=== PATIENT | male | born 1985 | race American Indian/Alaskan Native ===

== ENCOUNTER 2018-06-23 23:30 | Emergency (ER) | payer SELFPAY ==
[2018-06-23] MEDS ORDERED: HALDOL IM PRN (23:59)
[2018-06-23] MEDS ORDERED: ATIVAN IM PRN (23:59)
--- NOTE | 2018-06-24 00:02 | Emergency Department Report ---
ED General Adult HPI - General Chief complaint: Psych Stated complaint: AMS Time Seen by Provider: 06/23/18 23:50 Source: patient, family, EMS (ems notes not available at time of chart dictation), RN notes reviewed, old records reviewed Mode of arrival: Ambulatory Limitations: Altered Mental Status - History of Present Illness Initial comments: This is a 33-year-old gentleman. The patient is accompanied by his fiance, Ms. Veroinque Burciaga; [phone] History is primarily obtained from this Burciaga. The patient was apparently last seen normal at 3:00 PM. Sometime this evening, the patient may have ingested an unknown drug or substance. It is not known what the patient took, and it is not known what time the ingestion took place. The patient complains of hallucinations but denies pain. The patient denies homicidality and suicidality. The patient is very anxious and emotionally labile, and is a poor historian. As for his fiance, there is no history of trauma that she is aware of. She reports patient was in his usual state of health earlier once today, up until going out with some friends. -: This afternoon Radiation: other Quality: other Consistency: other Improves with: other Worsens with: other Associated Symptoms: confusion, loss of appetite, malaise, weakness. denies: chest pain, cough, diaphoresis, fever/chills, headaches, nausea/vomiting, rash, seizure, shortness of breath, syncope - Related Data Previous Rx's Medication Instructions Recorded Last Taken Type RX: Naproxen [Naprosyn TAB] 500 mg PO BID PRN #20 tablet 03/19/16 Unknown Rx RX: traMADol [Ultram 50 MG tab] 50 mg PO Q6HR PRN #20 tablet 03/19/16 Unknown Rx Allergies Allergy/AdvReac Type Severity Reaction Status Date / Time No Known Allergies Allergy Unverified 03/18/16 18:00 ED Review of Systems ROS: Stated complaint: AMS Other details as noted in HPI Comment: Unobtainable due to pts medical conditions Constitutional: malaise Eyes: denies: eye discharge Respiratory: denies: cough Cardiovascular: denies: chest pain Genitourinary: denies: dysuria Musculoskeletal: denies: back pain, arthralgia, myalgia Skin: denies: lesions Neurological: weakness, confusion Psychiatric: anxiety, auditory hallucinations. denies: homicidal thoughts, suicidal thoughts ED Past Medical Hx - Past Medical History Previous Medical History?: Yes Hx Hypertension: Yes (untreated) Hx Psychiatric Treatment: Yes (anxiety) Additional medical history: hyperthyroidism - Surgical History Past Surgical History?: No - Social History Smoking Status: Current Every Day Smoker Substance Use Type: Alcohol - Medications Home Medications: Home Medications Medication Instructions Recorded Confirmed Last Taken Type RX: Naproxen [Naprosyn TAB] 500 mg PO BID PRN #20 tablet 03/19/16 Unknown Rx RX: traMADol [Ultram 50 MG tab] 50 mg PO Q6HR PRN #20 tablet 03/19/16 Unknown Rx ED Physical Exam - General Limitations: Altered Mental Status General appearance: appears intoxicated, anxious, in distress - Head Head exam: Present: atraumatic, normocephalic - Eye Eye exam: Present: normal appearance, EOMI, other (visual acuity intact to finger counting and color perception.) - ENT ENT exam: Present: normal exam, normal orophraynx, normal external ear exam - Neck Neck exam: Present: normal inspection, full ROM. Absent: tenderness, meningismus - Respiratory Respiratory exam: Present: normal lung sounds bilaterally. Absent: respiratory distress, wheezes, rales, rhonchi, stridor, chest wall tenderness - Cardiovascular Cardiovascular Exam: Present: regular rate, normal rhythm, normal heart sounds. Absent: bradycardia, tachycardia, irregular rhythm, systolic murmur, diastolic murmur, rubs, gallop - GI/Abdominal GI/Abdominal exam: Present: soft. Absent: distended, tenderness, guarding, rebound, rigid, pulsatile mass - Extremities Exam Extremities exam: Present: normal inspection, full ROM, other (2+ pulses noted in the bilateral upper, lower extremities. Compartments soft. No long bony tenderness. The pelvis is stable.). Absent: pedal edema, calf tenderness - Back Exam Back exam: Present: normal inspection, full ROM. Absent: tenderness, CVA tenderness (R), CVA tenderness (L), muscle spasm, paraspinal tenderness, vertebral tenderness - Neurological Exam Neurological exam: Present: altered, other (there is no facial droop. The tongue is midline. Extraocular movements are intact bilaterally. The tongue is midline, 5 out of 5 strength in 4 extremities. Unable to perform detailed neurologic examination secondary to intoxication.) - Psychiatric Psychiatric exam: Present: anxious. Absent: homicidal ideation, suicidal ideation - Skin Skin exam: Present: warm, dry, intact, normal color. Absent: rash ED Course Vital Signs 06/23/18 06/23/18 06/24/18 23:46 23:50 00:00 Temperature 98.8 F 98.8 F Pulse Rate 104 H 104 H Respiratory 18 18 Rate Blood Pressure 168/99 168/99 145/87 Blood Pressure 168/99 [Right] O2 Sat by Pulse 97 97 97 Oximetry 06/24/18 06/24/18 06/24/18 01:00 02:01 03:00 Temperature Pulse Rate 112 H 96 H 96 H Respiratory 10 L 17 13 Rate Blood Pressure 138/68 126/66 129/73 Blood Pressure [Right] O2 Sat by Pulse 95 100 96 Oximetry 06/24/18 06/24/18 04:01 05:00 Temperature Pulse Rate 73 72 Respiratory 12 12 Rate Blood Pressure 106/54 96/55 Blood Pressure [Right] O2 Sat by Pulse 96 96 Oximetry - Reevaluation(s) Reevaluation #1: 06/24/18 00:50 Differential diagnosis, including not limited to: Overdose, intoxication, thyroid derangement, intracranial hemorrhage Assessment and plan: 33-year-old gentleman with bizarre behavior, emotional volatility, but calm and cooperative, and not homicidal or suicidal. His fiance independently articulates that she is not worried about self-harm. The patient is placed on a 2013 for presumed intoxication. Screening laboratory studies, EKG, noncontrast CT scan of the brain pending. Psychiatric consultation obtained. We will observe patient in the emergency room pending clinical sobriety. We will reassess once his laboratory studies and CT scan have resulted. Reevaluation #2: 06/24/18 01:[address] scan of the brain is negative for acute disease. Screening laboratory studies thus far unremarkable. Awaiting clinical sobriety. Reevaluation #3: 06/24/18 patient is clinically sober. he walks with a steady gait. he is alert and oriented x 3 he denies complaints fiance feels safe to take him home counseled to not consume illicit substances will discharge 06/24/18 05:57 Reevaluation #4: 06/24/18 06:00 2013 discontinued ED Medical Decision Making - Lab Data Result diagrams: 06/24/18 00:19 06/24/18 00:19 Vital Signs 06/23/18 06/23/18 06/24/18 23:46 23:50 00:00 Temperature 98.2 F 98.8 F Pulse Rate 85 104 H Respiratory 14 18 Rate Blood Pressure 148/85 168/99 145/87 Blood Pressure 168/99 [Right] O2 Sat by Pulse 99 97 97 Oximetry Lab Results 06/24/18 06/24/18 Range/Units 00:19 00:38 WBC 11.7 H (4.5-11.0) K/mm3 RBC 4.98 (3.65-5.03) M/mm3 Hgb 14.6 (11.8-15.2) gm/dl Hct 42.8 (35.5-45.6) % MCV 86 (84-94) fl MCH 29 (28-32) pg MCHC 34 (32-34) % RDW 14.3 (13.2-15.2) % Plt Count 243 (140-440) K/mm3 Drugs of Abuse Note Disclamer - EKG Data -: EKG Interpreted by Vt EKG shows normal: sinus rhythm, axis, intervals, QRS complexes, ST-T waves Rate: normal - EKG Data When compared to previous EKG there are: previous EKG unavailable - Radiology Data Radiology results: pending Critical care attestation.: If time is entered above; I have spent that time in minutes in the direct care of this critically ill patient, excluding procedure time. ED Disposition Clinical Impression: History of drug abuse Disposition: DC-01 TO HOME OR SELFCARE Is pt being admited?: No Does the pt Need Aspirin: No Condition: Good Additional Instructions: Discontinued consumption of cannabis, illicit drugs. Long-term consumption of these substances may result in disability, paralysis, loss of quality of life. Follow-up with a primary care doctor or mental health professional within the next 7-10 days, and do not drive or operate motor vehicles until cleared by a primary care doctor to do so. Return to the emergency room right away with new, worsening or different symptoms. Referrals: KEVIN BACK MD [Primary Care Provider] - 3[facility] Days [facility] Days
[2018-06-24 00:39] LABS: Hematocrit 42.8 % (35.5-45.6); Hemoglobin 14.6 gm/dl (11.8-15.2); Mean Corpuscular HGB Conc 34 % (32-34); Mean Corpuscular Volume 86 fl (84-94); Platelet Count 243 K/mm3 (140-440); Red Blood Count 4.98 M/mm3 (3.65-5.03); Red Cell Distribution Width 14.3 % (13.2-15.2)
[2018-06-24 00:55] LABS: Alanine Aminotransferase 46 units/L (7-56); Albumin 4.6 g/dL (3.9-5); BUN/Creatinine Ratio 8; Blood Urea Nitrogen 10 mg/dL (9-20); Calcium 9.6 mg/dL (8.4-10.2); Hemolysis Index 33
[2018-06-24 01:14] LABS: Amphetamine Screen,Urine PRESUMPTIVE NEGATIVE; Benzodiazepines Screen,Urine PRESUMPTIVE NEGATIVE; Cocaine Screen,Urine PRESUMPTIVE NEGATIVE; Methadone Screen,Urine PRESUMPTIVE NEGATIVE; Opiate Screen,Urine PRESUMPTIVE NEGATIVE
[2018-06-24 01:26] LABS: Bilirubin,Urine NEG (Negative); Blood,Urine SM (Negative); Cannabinoid Screen,Urine PRESUMPTIVE POSITIVE; Color,Urine Straw (Yellow); RBC,Urine < 1.0 /HPF (0.0-6.0); Urobilinogen,Urine < 2.0 mg/dL (<2.0)
--- NOTE | 2018-06-24 01:36 | Cat Scan Report ---
FINAL REPORT EXAM: CT HEAD/BRAIN WO CON HISTORY: ams COMPARISON: None available. TECHNIQUE: Axial images obtained skull base through vertex. FINDINGS: No acute intracranial hemorrhage, midline shift or pathologic extra axial fluid collection. Ventricle s and cisterns are normal in size and configuration for the patient's age. Morin-white differentiation preserved. Calvarium grossly intact. Visualized ocular globes are grossly unremarkable. Mild to mode rate mucosal thickening of the ethmoid air cells. Mastoid air cells are clear. IMPRESSION: No grossly acute intracranial abnormality.
[2018-06-24 06:06] VITALS: BP 96/55
== END 2018-06-24 06:14 | disposition home or self-care (01) ==
LOC: EEVIPCON 23:30 → ED 23:30
DX: F19.129 Other psychoactive substance abuse with intoxication, unspecified (principal); R44.3 Hallucinations, unspecified; F41.9 Anxiety disorder, unspecified
CPT/HCPCS: 36415; 70450; 80053; 80307; 81001; 82140; 82550; 84439; 84443; 85027; 93005; 93010; 99284; G0480; 80320

== ENCOUNTER 2018-10-24 17:43 | Emergency (ER) | payer SELFPAY ==
--- NOTE | 2018-10-24 17:50 | Emergency Department Report ---
Blank Doc - Documentation Documentation: 33 y o male presents with right middle finger pain x 4 days no trauma or injury ACC eval
[2018-10-24] MEDS ORDERED: XYLOCAINE 1% MPF 5 mL INFILTRATI ONE (19:23)
[2018-10-24] MEDS ORDERED: IBUPROFEN PO ONE (19:24)
[2018-10-24] MEDS ORDERED: BACTRIM DS PO ONE (19:24)
--- NOTE | 2018-10-24 20:07 | Emergency Department Report ---
ED General Adult HPI - General Chief complaint: Extremity Injury, Upper Stated complaint: FINGER INFECTED Time Seen by Provider: 10/24/18 17:48 Source: patient Mode of arrival: Ambulatory Limitations: No Limitations - History of Present Illness Initial comments: Patient is a 33-year-old -Mal[place]ian male with no past medical history who presents to the ED with complaint of acute onset of persistent severe painful swelling right middle fingertip for the last 1 week, worse in the last 3 days. Patient denies fever, chills, nausea, vomiting, numbness and tingling on the right middle finger right hand, traumatic injury, dizziness, or weakness of the right hand. Patient admits to biting his nails have been habitually. MD Complaint: RIGHT MIDDLE FINGER TIP INFECTION -: Sudden, week(s) (1) Location: upper extremity (right middle finger) Radiation: non-radiation Severity scale (0 -10): 8 Quality: aching, sharp, constant Consistency: constant Improves with: none Worsens with: none Associated Symptoms: denies other symptoms, rash. denies: confusion, chest pain, cough, diaphoresis, fever/chills, headaches, loss of appetite, malaise, nausea/vomiting, seizure, shortness of breath, syncope, weakness Treatments Prior to Arrival: none - Related Data Previous Rx's Medication Instructions Recorded Last Taken Type Naproxen [Naprosyn TAB] 500 mg PO BID PRN #20 tablet 03/19/16 Unknown Rx traMADol [Ultram 50 MG tab] 50 mg PO Q6HR PRN #20 tablet 03/19/16 Unknown Rx Acetaminophen/Codeine [Tylenol 1 tab PO Q6H PRN #12 tab 10/24/18 Unknown Rx /Codeine # 3 tab] Ibuprofen [Motrin] 800 mg PO Q8HR PRN #20 tablet 10/24/18 Unknown Rx Sulfamethoxazole/Trimethoprim 1 each PO Q12H #20 tablet 10/24/18 Unknown Rx [Bactrim DS TAB] Allergies Allergy/AdvReac Type Severity Reaction Status Date / Time No Known Allergies Allergy Verified 10/24/18 17:43 ED Review of Systems ROS: Stated complaint: FINGER INFECTED Other details as noted in HPI Comment: All other systems reviewed and negative Constitutional: no symptoms reported. denies: chills, fever, malaise ENT: as per HPI. denies: ear pain, throat pain, dental pain, hearing loss Respiratory: no symptoms reported, see HPI. denies: cough, orthopnea, shortness of breath, SOB with exertion, SOB at rest Cardiovascular: as per HPI. denies: chest pain, dyspnea on exertion, orthopnea, syncope, paroxysmal nocturnal dyspnea Endocrine: no symptoms reported, see HPI. denies: excessive sweating, increased hunger, increased thirst, increased urine, unexplained weight gain, unexplained weight loss Gastrointestinal: as per HPI. denies: abdominal pain, nausea, vomiting, diarrhea, constipation Genitourinary: as per HPI. denies: urgency, dysuria, frequency, hematuria, discharge Musculoskeletal: as per HPI, joint swelling (right middle finger pain, swelling ). denies: back pain, arthralgia, myalgia Skin: as per HPI, rash (erythematous maculopapular fluctuant rash on distal right middle finger), change in color (erythematous). denies: change in hair/nails, pruritus Neurological: as per HPI. denies: headache, weakness, numbness, paresthesias Psychiatric: as per HPI Hematological/Lymphatic: as per HPI ED Past Medical Hx - Past Medical History Hx Hypertension: Yes (untreated) Hx Psychiatric Treatment: Yes (anxiety) Additional medical history: hyperthyroidism - Social History Smoking Status: Current Every Day Smoker Substance Use Type: Alcohol - Medications Home Medications: Home Medications Medication Instructions Recorded Confirmed Last Taken Type Naproxen [Naprosyn TAB] 500 mg PO BID PRN #20 tablet 03/19/16 Unknown Rx traMADol [Ultram 50 MG tab] 50 mg PO Q6HR PRN #20 tablet 03/19/16 Unknown Rx Acetaminophen/Codeine [Tylenol 1 tab PO Q6H PRN #12 tab 10/24/18 Unknown Rx /Codeine # 3 tab] Ibuprofen [Motrin] 800 mg PO Q8HR PRN #20 tablet 10/24/18 Unknown Rx Sulfamethoxazole/Trimethoprim 1 each PO Q12H #20 tablet 10/24/18 Unknown Rx [Bactrim DS TAB] ED Physical Exam - General Limitations: No Limitations General appearance: alert, in no apparent distress - Head Head exam: Present: atraumatic, normocephalic, normal inspection - Eye Eye exam: Present: normal appearance, PERRL, EOMI. Absent: scleral icterus, conjunctival injection Pupils: Present: normal accommodation - ENT ENT exam: Present: normal exam, normal orophraynx, mucous membranes moist, TM's normal bilaterally, normal external ear exam - Neck Neck exam: Present: normal inspection, full ROM. Absent: tenderness - Respiratory Respiratory exam: Present: normal lung sounds bilaterally. Absent: respiratory distress, wheezes, rales, rhonchi, chest wall tenderness, prolonged expiratory - Cardiovascular Cardiovascular Exam: Present: regular rate, normal rhythm, normal heart sounds. Absent: tachycardia, systolic murmur, diastolic murmur - GI/Abdominal GI/Abdominal exam: Present: soft, normal bowel sounds. Absent: distended, tenderness, guarding, rebound, hyperactive bowel sounds, hypoactive bowel sounds - Extremities Exam Extremities exam: Present: normal inspection, full ROM, tenderness (right middle finger tip), normal capillary refill, joint swelling (distal right middle finger tip) - Expanded Upper Extremity Exam Right Hand Wrist exam: Present: normal inspection, tenderness, swelling, erythema, other (Erythematous swollen tender maculopapular rash on distal right middle finger at the nail bed with fluctuance) Hand L/R Back: 1 - Swollen severely tender fluctuant maculopapular rash on distal right middle finger at the nail bed - Back Exam Back exam: Present: normal inspection, full ROM. Absent: muscle spasm, paraspinal tenderness - Neurological Exam Neurological exam: Present: alert, oriented X3, CN II-XII intact, normal gait, reflexes normal - Psychiatric Psychiatric exam: Present: normal affect - Skin Skin exam: Present: warm, dry, intact, rash (erythematous maculoappular fluctuant rash on distal right middle finger), erythema ED Course Vital Signs 10/24/18 10/24/18 17:48 19:40 Temperature 98.3 F Pulse Rate 68 Respiratory 20 16 Rate Blood Pressure 151/88 O2 Sat by Pulse 98 Oximetry - Reevaluation(s) Reevaluation #1: 10/24/18 20:10 On reevaluation, patient's pain is controlled, and the patient alerted the incision and drainage procedure well. - I & D Right Upper Distal Dorsal Finger Type of Procedure: Simple Site: distal dorsal right middle finger at the nail bed Blade Size: 11 I & D Procedure: betadine prep, sterile drapes applied, sterile dressing applied, gauze wick placed Progress: Patient tolerated the procedure well. The wound was cleaned thoroughly and packed with gauze. The wound was then dressed appropriately and patient discharged home on pain medications and antibiotics. ED Medical Decision Making - Medical Decision Making Patient is alert and oriented 3 and his abdomen distress but pain. Patient was treated with an anesthetic given an initial antibiotics in the ED. Patient diverted the incision and drainage procedure well and was discharged home on medications including antibiotics and pain medications. Patient advised to return to the ED in 2 days or to his primary care physician for wound recheck and packing removal. Patient was otherwise advised to return to the ED immediately if symptoms get worse. - Differential Diagnosis Paronychia of right middle finger, cellulitis of right middle finger Critical care attestation.: If time is entered above; I have spent that time in minutes in the direct care of this critically ill patient, excluding procedure time. ED Disposition Clinical Impression: Paronychia of right middle finger, Cellulitis of right middle finger Disposition: TO HOME OR SELFCARE Is pt being admited?: No Does the pt Need Aspirin: No Condition: Stable Instructions: Cellulitis (ED), Paronychia (ED) Additional Instructions: Take Medications with food, drink plenty of fluids and follow up with your primary care physician or back to the ED in 2 days for wound recheck. Otherwise return to the ED immediately if symptoms get worse. Absolutely No alcohol consumption advised Prescriptions: Sulfamethoxazole/Trimethoprim [Bactrim DS TAB] 1 each PO Q12H #20 tablet Ibuprofen [Motrin] 800 mg PO Q8HR PRN #20 tablet PRN Reason: Pain , Severe (7-10) Acetaminophen/Codeine [Tylenol /Codeine # 3 tab] 1 tab PO Q6H PRN #12 tab PRN Reason: Pain , Severe (7-10) Referrals: BRANDEN BRANNON MD [Primary Care Provider] - 3-5 Days Time of Disposition: 20:17 Print Language: SWISS
[2018-10-24 20:29] VITALS: BP 138/87
== END 2018-10-24 20:29 | disposition home or self-care (01) ==
LOC: ED 17:43
DX: L03.011 Cellulitis of right finger (principal); I10 Essential (primary) hypertension; F41.9 Anxiety disorder, unspecified; E05.90 Thyrotoxicosis, unspecified without thyrotoxic crisis or storm; F17.200 Nicotine dependence, unspecified, uncomplicated

== ENCOUNTER 2018-10-26 16:51 | Emergency (ER) | payer SELFPAY ==
--- NOTE | 2018-10-26 17:03 | Emergency Department Report ---
Chief Complaint: Extremity Injury, Upper Stated Complaint: FOLLOW UP TO FINGER INFECTION Time Seen by Provider: 10/26/18 17:01 - HPI History of Present Illness: This is a 33 y.o. M. that presents to the ER for wound reevaluation. Patient seen in this ER and paryonchia drained 2 days ago. - Exam Vital Signs: Vital Signs 10/26/18 17:01 Temperature 98.9 F Pulse Rate 77 Respiratory 18 Rate Blood Pressure 148/98 O2 Sat by Pulse 98 Oximetry MSE screening note: Focused history and physical exam performed. Due to findings the following was ordered: This initial assessment/diagnostic orders/clinical plan/treatment(s) is/are subject to change based on patient's health status, clinical progression and re- assessment by fellow clinical providers in the ED. Further treatment and workup at subsequent clinical providers discretion. Patient/guardians urged not to elope from the ED as their condition may be serious if not clinically assessed and managed. Initial orders include: ACC for further evaluation. ED Disposition for MSE Condition: Stable
[2018-10-26 20:31] VITALS: BP 138/81
[2018-10-26] MEDS ORDERED: LIDOCAINE VISCOUS 2% ONE (21:52)
[2018-10-26] MEDS ORDERED: LIDOCAINE VISCOUS 2% PO ONE (21:53)
--- NOTE | 2018-10-26 21:53 | Emergency Department Report ---
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 He presents to the emergency room for wound care and wound checkup. He had a paronychia that was treated at this hospital 2 days ago, by local block, incision and drainage, and packing. He endorses compliance with his antibiotics. Swelling is still present. Minimal pain noted on the pad. No fevers or chills. No pain with passive range of motion of the right middle finger. No other injuries, no other complaints. -: days(s) (2) Extremity Location: Right: Hand (right middle finger) Context: other (comes in for wound check) Associated Symptoms: pain - Related Data Previous Rx's Medication Instructions Recorded Last Taken Type Naproxen [Naprosyn TAB] 500 mg PO BID PRN #20 tablet 03/19/16 Unknown Rx traMADol [Ultram 50 MG tab] 50 mg PO Q6HR PRN #20 tablet 03/19/16 Unknown Rx Acetaminophen/Codeine [Tylenol 1 tab PO Q6H PRN #12 tab 10/24/18 Unknown Rx /Codeine # 3 tab] Ibuprofen [Motrin] 800 mg PO Q8HR PRN #20 tablet 10/24/18 Unknown Rx Sulfamethoxazole/Trimethoprim 1 each PO Q12H #20 tablet 10/24/18 Unknown Rx [Bactrim DS TAB] Allergies Allergy/AdvReac Type Severity Reaction Status Date / Time No Known Allergies Allergy Verified 10/26/18 21:56 ED Review of Systems ROS: Stated complaint: FOLLOW UP TO FINGER INFECTION Other details as noted in HPI Constitutional: denies: fever Eyes: denies: eye discharge ENT: denies: epistaxis Respiratory: denies: cough Cardiovascular: denies: chest pain Gastrointestinal: denies: abdominal pain Musculoskeletal: myalgia Neurological: denies: headache, weakness, numbness, paresthesias, confusion ED Past Medical Hx - Past Medical History Hx Hypertension: Yes (untreated) Hx Psychiatric Treatment: Yes (anxiety) Additional medical history: hyperthyroidism - Social History Smoking Status: Current Every Day Smoker Substance Use Type: Alcohol - Medications Home Medications: Home Medications Medication Instructions Recorded Confirmed Last Taken Type Naproxen [Naprosyn TAB] 500 mg PO BID PRN #20 tablet 03/19/16 Unknown Rx traMADol [Ultram 50 MG tab] 50 mg PO Q6HR PRN #20 tablet 03/19/16 Unknown Rx Acetaminophen/Codeine [Tylenol 1 tab PO Q6H PRN #12 tab 10/24/18 Unknown Rx /Codeine # 3 tab] Ibuprofen [Motrin] 800 mg PO Q8HR PRN #20 tablet 10/24/18 Unknown Rx Sulfamethoxazole/Trimethoprim 1 each PO Q12H #20 tablet 10/24/18 Unknown Rx [Bactrim DS TAB] ED Physical Exam - General Limitations: No Limitations General appearance: alert, in no apparent distress - Head Head exam: Present: atraumatic, normocephalic - Eye Eye exam: Present: normal appearance, EOMI. Absent: conjunctival injection, nystagmus - ENT ENT exam: Present: normal exam, normal orophraynx, mucous membranes moist, normal external ear exam - Neck Neck exam: Present: normal inspection, full ROM. Absent: tenderness, meningismus - Respiratory Respiratory exam: Present: normal lung sounds bilaterally. Absent: respiratory distress - Cardiovascular Cardiovascular Exam: Present: regular rate, normal rhythm, normal heart sounds. Absent: bradycardia, tachycardia, irregular rhythm, systolic murmur, diastolic murmur, rubs, gallop - GI/Abdominal GI/Abdominal exam: Present: soft. Absent: distended, tenderness, guarding, rebound, rigid, pulsatile mass - Rectal Rectal exam: Present: deferred - Extremities Exam Extremities exam: Present: normal inspection, full ROM, other (2+ pulses noted in the bilateral upper extremities. Full range of motion of bilateral upper and lower extremities. The middle finger has packing on the dorsal distal aspect. There is hyperpigmentation, but no pus or streaking. Question minimal erythema noted. The pad of the middle finger is minimally tender. There is no fluctuance. Compartments are soft. Finger intrinsics are intact range of motion.) - Back Exam Back exam: Present: normal inspection, full ROM. Absent: tenderness, CVA tenderness (R), CVA tenderness (L), vertebral tenderness - Neurological Exam Neurological exam: Present: alert, other (Extraocular movements intact. Tongue midline. No facial droop. Facial sensation intact to light touch in the V1, V2, V3 distribution bilaterally. 5 and 5 strength in 4 extremities.. Sensation is intact to light touch in 4 extremities.). Absent: motor sensory deficit - Psychiatric Psychiatric exam: Present: normal affect, normal mood - Skin Skin exam: Present: warm, dry, intact, normal color. Absent: rash ED Course Vital Signs 10/26/18 10/26/18 17:01 20:30 Temperature 98.9 F Pulse Rate 77 70 Respiratory 18 16 Rate Blood Pressure 148/98 Blood Pressure 138/81 [Left] O2 Sat by Pulse 98 99 Oximetry ED Medical Decision Making - Lab Data Vital Signs - 24 hr 10/26/18 10/26/18 17:01 20:30 Temperature 98.9 F Pulse Rate 77 70 Respiratory 18 16 Rate Blood Pressure 148/98 Blood Pressure 138/81 [Left] O2 Sat by Pulse 98 99 Oximetry - Medical Decision Making Differential diagnosis, including but not limited to: Paronychia follow-up, wound care check up Assessment and plan: 33-year-old gentleman who presents to the emergency room for wound care check up after incision and drainage of paronychia. He does not appear to have worsening cellulitis, packing was removed, and finger pad is not fluctuant, and does not demonstrate exquisite tenderness. Do not suspect felon at this time. Dressing was reapplied, although packing does not need to be reapplied, we discussed wound care instructions with the patient, he will continue antibiotics, he may initiate washing with gentle soap and water, initiate salt water soaks, and follow up as an outpatient. Critical care attestation.: If time is entered above; I have spent that time in minutes in the direct care of this critically ill patient, excluding procedure time. ED Disposition Clinical Impression: Visit for wound check Disposition: DC-01 TO HOME OR SELFCARE Is pt being admited?: No Does the pt Need Aspirin: No Condition: Stable Additional Instructions: Continue current outpatient medications. Wash the hand with gentle soap and water once every 24 hours. Apply bacitracin, purchased [id number], once every 24 hours to the wound. Patient may soak the finger in hot water, with salt, as often as as needed for symptom relief. Please make certain to keep the finger covered if at work. Patient should follow-up for check up within the next 5-7 days. The patient may follow up in this emergency room, with the primary care doctor, orthopedic surgeon, or urgent care center. The patient should return to this emergency room right away with significant redness, swelling, streaking, pus, inability to bend the right finger, or any new, worsening or different symptoms not present on the initial emergency room evaluation. Referrals: BLAKE RODRÍGUEZ MD [Staff Physician] - 3-[address] [facility] [Provider Group] - 3-5 Days
[2018-10-26] MEDS ORDERED: POLYSPORIN TP ONE (22:02)
[2018-10-26] MEDS ORDERED: TRIPLE ANTIBIOTIC TP ONE ×2 (22:09→22:15)
== END 2018-10-26 22:41 | disposition home or self-care (01) ==
LOC: ED 16:51
DX: L03.011 Cellulitis of right finger (principal); I10 Essential (primary) hypertension; E03.9 Hypothyroidism, unspecified; F17.200 Nicotine dependence, unspecified, uncomplicated
CPT/HCPCS: A6250

== ENCOUNTER 2019-01-21 20:07 | Emergency (ER) | payer SELFPAY ==
[2019-01-21 20:28] VITALS: BP 155/98
--- NOTE | 2019-01-21 20:57 | XRay Report ---
CHEST 2 VIEWS INDICATION / CLINICAL INFORMATION: chest pain. COMPARISON: None available. FINDINGS: SUPPORT DEVICES: None. HEART / MEDIASTINUM: No significant abnormality. LUNGS / PLEURA: No significant pulmonary or pleural abnormality. No pneumothorax. ADDITIONAL FINDINGS: No significant additional findings. IMPRESSION: 1. No acute findings. Signer Name: Joss Biswas MD Signed: 01/21/2019 8:52 PM Workstation Name: [id number]
[2019-01-21 21:03] LABS: Basophils % (Auto) 0.5 % (0.0-1.8); Eosinophils # (Auto) 0.3 K/mm3 (0.0-0.4); Eosinophils % (Auto) 5.1 % (0.0-4.3); Hematocrit 41.6 % (35.5-45.6); Hemoglobin 14.5 gm/dl (11.8-15.2); Lymphocytes # (Auto) 2.3 K/mm3 (1.2-5.4); Lymphocytes % (Auto) 35.9 % (13.4-35.0); Mean Corpuscular HGB Conc 35 % (32-34); Mean Corpuscular Volume 88 fl (84-94); Monocytes # (Auto) 0.5 K/mm3 (0.0-0.8); Monocytes % (Auto) 7.4 % (0.0-7.3); Platelet Count 217 K/mm3 (140-440); Red Blood Count 4.72 M/mm3 (3.65-5.03); Red Cell Distribution Width 14.4 % (13.2-15.2)
[2019-01-21 21:22] LABS: BUN/Creatinine Ratio 15; Blood Urea Nitrogen 16 mg/dL (9-20); Calcium 9.4 mg/dL (8.4-10.2); Hemolysis Index 4
== END 2019-01-22 01:15 | disposition home or self-care (01) ==
LOC: ED 20:07
DX: R42 Dizziness and giddiness (principal); Z53.21 Procedure and treatment not carried out due to patient leaving prior to being seen by health care provider
CPT/HCPCS: 36415; 71046; 80048; 84484; 85025; 93005; 93010

== ENCOUNTER 2019-04-15 00:19 | Emergency (ER) | payer SELFPAY ==
[2019-04-15 00:24] VITALS: BP 149/93
[2019-04-15] MEDS ORDERED: IBUPROFEN 800 MG TAB PO ONE (01:18)
--- NOTE | 2019-04-15 01:43 | XRay Report ---
CHEST 2 VIEWS INDICATION: cough x 1 month. COMPARISON: 01/21/2019. FINDINGS: Support devices: None. Heart: Within normal limits. Lungs/Pleura: No acute air space or interstitial disease. No significant pleural effusion. IMPRESSION: No acute findings. Signer Name: Jesse Benavides MD Signed: 04/15/2019 1:39 AM Workstation Name: [id number]
--- NOTE | 2019-04-15 01:59 | Emergency Department Report ---
ED General Adult HPI - General Chief complaint: Back Pain/Injury Stated complaint: DRY COUGH,LOSS OF APPETITE, BACK AND NECK PAIN Time Seen by Provider: 04/15/19 01:15 Source: patient Mode of arrival: Ambulatory Limitations: No Limitations - History of Present Illness Initial comments: Mr Mancia is s 34 y/o who presents for persistent cough for 1 months , with upper ago as back pain. This is chronic condition , pt denies sob, no wheezing, no stridor , no n/v no cp no dizziness or light headedness. There is no fever or chills, symptoms are exacerbated by movement, symptoms relieved by rest. Onset/Timin -: month(s), unknown (recurring for 1 yr) Location: back Radiation: back Severity scale (0 -10): 3 Quality: aching Consistency: intermittent Improves with: rest Worsens with: movement (cough ) Associated Symptoms: cough, loss of appetite. denies: diaphoresis, fever/chills, nausea/vomiting, shortness of breath, syncope, weakness Treatments Prior to Arrival: none - Related Data Previous Rx's Medication Instructions Recorded Last Taken Type Naproxen [Naprosyn TAB] 500 mg PO BID PRN #20 tablet 03/19/16 Unknown Rx traMADoL [Ultram 50 MG tab] 50 mg PO Q6HR PRN #20 tablet 03/19/16 Unknown Rx Acetaminophen/Codeine [Tylenol 1 tab PO Q6H PRN #12 tab 10/24/18 Unknown Rx /Codeine # 3 tab] Ibuprofen [Motrin] 800 mg PO Q8HR PRN #20 tablet 10/24/18 Unknown Rx Sulfamethoxazole/Trimethoprim 1 each PO Q12H #20 tablet 10/24/18 Unknown Rx [Bactrim DS TAB] Ketorolac [Toradol] 10 mg PO Q6H PRN #14 tablet 01/22/19 Unknown Rx Benzonatate [Tessalon Perles] 100 mg PO Q8HR PRN #30 capsule 04/15/19 Unknown Rx Fluticasone [Flonase] 1 spray NS QDAY #1 bottle 04/15/19 Unknown Rx Ibuprofen [Motrin 800 MG tab] 800 mg PO Q8HR PRN #30 tablet 04/15/19 Unknown Rx Loratadine 10 mg PO DAILY #30 tablet 04/15/19 Unknown Rx Allergies Allergy/AdvReac Type Severity Reaction Status Date / Time No Known Allergies Allergy Verified 10/26/18 21:56 ED Review of Systems ROS: Stated complaint: DRY COUGH,LOSS OF APPETITE, BACK AND NECK PAIN Other details as noted in HPI Constitutional: denies: chills, fever Eyes: denies: eye pain, eye discharge, vision change ENT: congestion. denies: ear pain, throat pain Respiratory: cough. denies: orthopnea, shortness of breath, wheezing Cardiovascular: denies: chest pain, palpitations, dyspnea on exertion, orthopnea, edema, syncope Endocrine: no symptoms reported Gastrointestinal: denies: abdominal pain, nausea, vomiting, diarrhea, melena Genitourinary: denies: urgency, dysuria, frequency, hematuria Musculoskeletal: back pain. denies: joint swelling, arthralgia, myalgia Skin: denies: rash, lesions Neurological: denies: headache, weakness, numbness, paresthesias, confusion, vertigo Psychiatric: denies: anxiety, depression Hematological/Lymphatic: denies: easy bleeding, easy bruising ED Past Medical Hx - Past Medical History Previous Medical History?: Yes Hx Hypertension: Yes (untreated) Hx Psychiatric Treatment: Yes (anxiety) Additional medical history: hyperthyroidism - Surgical History Past Surgical History?: No - Social History Smoking Status: Never Smoker Substance Use Type: Alcohol, Marijuana - Medications Home Medications: Home Medications Medication Instructions Recorded Confirmed Last Taken Type Naproxen [Naprosyn TAB] 500 mg PO BID PRN #20 tablet 03/19/16 Unknown Rx traMADoL [Ultram 50 MG tab] 50 mg PO Q6HR PRN #20 tablet 03/19/16 Unknown Rx Acetaminophen/Codeine [Tylenol 1 tab PO Q6H PRN #12 tab 10/24/18 Unknown Rx /Codeine # 3 tab] Ibuprofen [Motrin] 800 mg PO Q8HR PRN #20 tablet 10/24/18 Unknown Rx Sulfamethoxazole/Trimethoprim 1 each PO Q12H #20 tablet 10/24/18 Unknown Rx [Bactrim DS TAB] Ketorolac [Toradol] 10 mg PO Q6H PRN #14 tablet 01/22/19 Unknown Rx Benzonatate [Tessalon Perles] 100 mg PO Q8HR PRN #30 capsule 04/15/19 Unknown Rx Fluticasone [Flonase] 1 spray NS QDAY #1 bottle 04/15/19 Unknown Rx Ibuprofen [Motrin 800 MG tab] 800 mg PO Q8HR PRN #30 tablet 04/15/19 Unknown Rx Loratadine 10 mg PO DAILY #30 tablet 04/15/19 Unknown Rx ED Physical Exam - General Limitations: No Limitations General appearance: alert, in no apparent distress - Head Head exam: Present: atraumatic, normocephalic - Eye Eye exam: Present: normal appearance, PERRL, EOMI (A 40) Pupils: Present: normal accommodation (be confrontational) - ENT ENT exam: Present: mucous membranes moist, TM's normal bilaterally, normal external ear exam - Expanded ENT Exam Expanded Ear exam: Present: normal external inspection Throat exam: Positive: tonsillar erythema, other (uvula midline, no exudate no lesions no stridor no wheezing ). Negative: tonsillomegaly, tonsillar exudate, R peritonsillar mass, L peritonsillar mass - Neck Neck exam: Present: normal inspection, full ROM. Absent: tenderness, meningismus, lymphadenopathy, thyromegaly - Respiratory Respiratory exam: Present: normal lung sounds bilaterally. Absent: respiratory distress, wheezes, stridor (C, evening as), chest wall tenderness - Cardiovascular Cardiovascular Exam: Present: regular rate, normal rhythm, normal heart sounds (I). Absent: systolic murmur, diastolic murmur, rubs, gallop - GI/Abdominal GI/Abdominal exam: Present: soft, normal bowel sounds. Absent: distended, tenderness, guarding, rebound, rigid, bruit, hernia - Rectal Rectal exam: Present: deferred - Extremities Exam Extremities exam: Present: normal inspection, full ROM, normal capillary refill. Absent: tenderness - Back Exam Back exam: Present: normal inspection, full ROM. Absent: tenderness, CVA tenderness (R), CVA tenderness (L), muscle spasm, paraspinal tenderness, vertebral tenderness, rash noted - Expanded Back Exam Expanded Back exam: Absent: saddle anesthesia Back exam: Negative Straight Leg Raising: Left, Right - Neurological Exam Neurological exam: Present: alert, oriented X3, CN II-XII intact, normal gait, reflexes normal - Psychiatric Psychiatric exam: Present: normal affect, normal mood - Skin Skin exam: Present: warm, dry, intact, normal color. Absent: rash ED Course Vital Signs 04/15/19 00:23 Temperature 100.1 F H Pulse Rate 88 Respiratory 18 Rate Blood Pressure 149/93 O2 Sat by Pulse 99 Oximetry ED Medical Decision Making - Radiology Data Radiology results: report reviewed, image reviewed Ordering Physician: HEATHER DALY NP Date of Service: 04/15/19 Procedure(s): XR chest routine 2V Accession Number(s): [id number] cc: HEATHER DALY NP Fluoro Time In Minutes: CHEST 2 VIEWS INDICATION: cough x 1 month. COMPARISON: 01/21/2019. FINDINGS: Support devices: None. Heart: Within normal limits. Lungs/Pleura: No acute air space or interstitial disease. No significant pleural effusion. IMPRESSION: No acute findings. Signer Name: Jesse Benavides MD Signed: 04/15/2019 1:39 AM Workstation Name: [id number] Transcribed By: ES Dictated By: Jesse Benavides MD Electronically Authenticated By: Jesse Benavides MD Signed Date/Time: 04/15/19138 DD/ 6 TD/TT: - Medical Decision Making cxr normal, no infiltrates no opacities, there are mild URI symptoms, clear post nasal drip, there is no fever no chills no n/v , plan: nsaids prn pain, tessalon prn cough follow up with pcp in 2-3 days. pt verbalized agreement and understanding of discharged plan. Critical care attestation.: If time is entered above; I have spent that time in minutes in the direct care of this critically ill patient, excluding procedure time. ED Disposition Clinical Impression: Musculoskeletal pain URI (upper respiratory infection) Qualifiers: URI type: unspecified viral URI Qualified Code(s): J06.9 - Acute upper respiratory infection, unspecified Disposition: - TO HOME OR SELFCARE Is pt being admited?: No Does the pt Need Aspirin: No Condition: Stable Instructions: Upper Respiratory Infection (ED), Musculoskeletal Pain (ED) Prescriptions: Fluticasone [Flonase] 1 spray NS QDAY #1 bottle Loratadine 10 mg PO DAILY #30 tablet Ibuprofen [Motrin 800 MG tab] 800 mg PO Q8HR PRN #30 tablet PRN Reason: pain Benzonatate [Tessalon Perles] 100 mg PO Q8HR PRN #30 capsule PRN Reason: Cough Referrals: [facility] [Outside] - 3-5 Days Forms: Work/School Release Form(ED) Time of Disposition: 02:12
[2019-04-15] MEDS ORDERED: AMOXICILLIN/K CLAV 875/125MG TAB ONE (02:32)
[2019-04-15] MEDS ORDERED: ACETAMINOPHEN 500 MG TAB ONE (02:32)
[2019-04-15] MEDS ORDERED: ACETAMINOPHEN 500 MG TAB PO ONE (02:33)
[2019-04-15] MEDS ORDERED: AMOXICILLIN/K CLAV 875/125MG TAB PO ONE (02:33)
== END 2019-04-15 02:35 | disposition home or self-care (01) ==
LOC: ED 00:19
DX: J06.9 Acute upper respiratory infection, unspecified (principal); M79.10 Myalgia, unspecified site; I10 Essential (primary) hypertension; F41.9 Anxiety disorder, unspecified; F12.10 Cannabis abuse, uncomplicated; Z79.899 Other long term (current) drug therapy; Z79.1 Long term (current) use of non-steroidal anti-inflammatories (NSAID)
CPT/HCPCS: 71046; 99283

== ENCOUNTER 2019-04-26 09:21 | Emergency (ER) | payer SELFPAY ==
--- NOTE | 2019-04-26 11:26 | Emergency Department Report ---
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 Patient is unsure of exact blood pressure measurement, however states his blood pressure has been 150s/100s. He denies any chest pain, shortness of breath, headaches, dizziness, swelling, or vision changes. Patient denies any injuries to his left shoulder or neck or any heavy lifting. Patient states pain improves with ibuprofen and icing his shoulder. He rates his pain as a 7/10 in severity when it does occur. He also denies any numbness/weakness/tingling into his left arm or hand. - Related Data Previous Rx's Medication Instructions Recorded Last Taken Type Naproxen [Naprosyn TAB] 500 mg PO BID PRN #20 tablet 03/19/16 Unknown Rx traMADoL [Ultram 50 MG tab] 50 mg PO Q6HR PRN #20 tablet 03/19/16 Unknown Rx Acetaminophen/Codeine [Tylenol 1 tab PO Q6H PRN #12 tab 10/24/18 Unknown Rx /Codeine # 3 tab] Ibuprofen [Motrin] 800 mg PO Q8HR PRN #20 tablet 10/24/18 Unknown Rx Sulfamethoxazole/Trimethoprim 1 each PO Q12H #20 tablet 10/24/18 Unknown Rx [Bactrim DS TAB] Ketorolac [Toradol] 10 mg PO Q6H PRN #14 tablet 01/22/19 Unknown Rx Amoxicillin/Potassium Clav 1 each PO BID 10 Days #20 tablet 04/15/19 Unknown Rx [Augmentin 875-125 Tablet] Benzonatate [Tessalon Perles] 100 mg PO Q8HR PRN #30 capsule 04/15/19 Unknown Rx Fluticasone [Flonase] 1 spray NS QDAY #1 bottle 04/15/19 Unknown Rx Ibuprofen [Motrin 800 MG tab] 800 mg PO Q8HR PRN #30 tablet 04/15/19 Unknown Rx Loratadine 10 mg PO DAILY #30 tablet 04/15/19 Unknown Rx Meloxicam [Mobic] 15 mg PO QDAY PRN #14 tablet 04/26/19 Unknown Rx amLODIPine [Norvasc] 5 mg PO DAILY #14 tab 04/26/19 Unknown Rx Allergies Allergy/AdvReac Type Severity Reaction Status Date / Time No Known Allergies Allergy Verified 04/26/19 09:22 ED Review of Systems ROS: Stated complaint: HYPERTENSION Other details as noted in HPI Comment: All other systems reviewed and negative Musculoskeletal: as per HPI ED Past Medical Hx - Past Medical History Previous Medical History?: Yes Hx Hypertension: Yes (untreated) Hx Psychiatric Treatment: Yes (anxiety) Additional medical history: hyperthyroidism, heart murmur - Surgical History Past Surgical History?: No - Social History Smoking Status: Unknown if ever smoked Substance Use Type: None - Medications Home Medications: Home Medications Medication Instructions Recorded Confirmed Last Taken Type Naproxen [Naprosyn TAB] 500 mg PO BID PRN #20 tablet 03/19/16 Unknown Rx traMADoL [Ultram 50 MG tab] 50 mg PO Q6HR PRN #20 tablet 03/19/16 Unknown Rx Acetaminophen/Codeine [Tylenol 1 tab PO Q6H PRN #12 tab 10/24/18 Unknown Rx /Codeine # 3 tab] Ibuprofen [Motrin] 800 mg PO Q8HR PRN #20 tablet 10/24/18 Unknown Rx Sulfamethoxazole/Trimethoprim 1 each PO Q12H #20 tablet 10/24/18 Unknown Rx [Bactrim DS TAB] Ketorolac [Toradol] 10 mg PO Q6H PRN #14 tablet 01/22/19 Unknown Rx Amoxicillin/Potassium Clav 1 each PO BID 10 Days #20 tablet 04/15/19 Unknown Rx [Augmentin 875-125 Tablet] Benzonatate [Tessalon Perles] 100 mg PO Q8HR PRN #30 capsule 04/15/19 Unknown Rx Fluticasone [Flonase] 1 spray NS QDAY #1 bottle 04/15/19 Unknown Rx Ibuprofen [Motrin 800 MG tab] 800 mg PO Q8HR PRN #30 tablet 04/15/19 Unknown Rx Loratadine 10 mg PO DAILY #30 tablet 04/15/19 Unknown Rx Meloxicam [Mobic] 15 mg PO QDAY PRN #14 tablet 04/26/19 Unknown Rx amLODIPine [Norvasc] 5 mg PO DAILY #14 tab 04/26/19 Unknown Rx ED Physical Exam - General Limitations: No Limitations General appearance: alert, in no apparent distress - Head Head exam: Present: atraumatic, normocephalic - Eye Eye exam: Present: normal appearance. Absent: scleral icterus - ENT ENT exam: Present: mucous membranes moist - Neck Neck exam: Present: normal inspection, full ROM. Absent: tenderness, meningi smus, lymphadenopathy - Respiratory Respiratory exam: Present: normal lung sounds bilaterally. Absent: respiratory distress - Cardiovascular Cardiovascular Exam: Present: regular rate, normal rhythm. Absent: systolic mur mur, diastolic murmur, rubs, gallop - GI/Abdominal GI/Abdominal exam: Present: soft, normal bowel sounds - Extremities Exam Extremities exam: Present: full ROM, normal capillary refill - Expanded Upper Extremity Exam Left Shoulder Exam: Present: tenderness (noted of posterior shoulder). Absent: swelling, laceration, ecchymosis, deformity, crepidus, dislocation, erythema, tenderness over AC joint Upper Arm exam: Present: normal inspection Elbow exam: Present: normal inspection Forearm Wrist exam: Present: normal inspection Hand Wrist exam: Present: normal inspection - Back Exam Back exam: Present: normal inspection - Neurological Exam Neurological exam: Present: alert, oriented X3 - Psychiatric Psychiatric exam: Present: normal affect, normal mood - Skin Skin exam: Present: warm, dry, intact, normal color. Absent: rash ED Course Vital Signs 04/26/19 09:32 Temperature 98.7 F Pulse Rate 87 Respiratory 20 Rate Blood Pressure 150/98 O2 Sat by Pulse 97 Oximetry ED Medical Decision Making - Lab Data Result diagrams: 04/26/19 12:33 04/26/19 12:33 Lab Results 04/26/19 04/26/19 Range/Units 12:33 12:33 WBC 5.7 (4.5-11.0) K/mm3 RBC 4.94 (3.65-5.03) M/mm3 Hgb 14.4 (11.8-15.2) gm/dl Hct 43.8 (35.5-45.6) % MCV 89 (84-94) fl MCH 29 (28-32) pg MCHC 33 (32-34) % RDW 13.7 (13.2-15.2) % Plt Count 292 (140-440) K/mm3 Lymph % (Auto) 25.8 (13.4-35.0) % [place] % (Auto) 6.7 (0.0-7.3) % Eos % (Auto) 0.8 (0.0-4.3) % Baso % (Auto) 0.4 (0.0-1.8) % Lymph # 1.5 (1.2-5.4) K/mm3 [place] # 0.4 (0.0-0.8) K/mm3 Eos # 0.0 (0.0-0.4) K/mm3 Baso # 0.0 (0.0-0.1) K/mm3 Seg Neutrophils % 66.3 (40.0-70.0) % Seg Neutrophils # 3.7 (1.8-7.7) K/mm3 Sodium 142 (137-145) mmol/L Potassium 4.3 (3.6-5.0) mmol/L Chloride 104.0 (98-107) mmol/L Carbon Dioxide 26 (22-30) mmol/L Anion Gap 16 mmol/L BUN 12 (9-20) mg/dL Creatinine 0.9 (0.8-1.5) mg/dL Estimated GFR > 60 ml/min BUN/Creatinine Ratio 13 % Glucose 94 (75-100) mg/dL Calcium 9.6 (8.4-10.2) mg/dL Total Bilirubin 1.20 (0.1-1.2) mg/dL AST 25 (5-40) units/L ALT 45 (7-56) units/L Alkaline Phosphatase 65 (35-129) units/L Total Protein 7.1 (6.3-8.2) g/dL Albumin 4.7 (3.9-5) g/dL Albumin/Globulin Ratio 2.0 % - Medical Decision Making 34-year-old male patient here for elevated blood pressure ongoing for months and left shoulder and neck pain for the past 2 months. Patient states he has had multiple elevated blood pressure readings. Denies any red flag symptoms. CBC and BMP are WNL. BP has been elevated here in ED 01/21/19 at 158/98 and 04/15/19 at 149/93. Discussed need for blood pressure assessment and treatment with primary care. Will start patient on amlodipine for now with follow-up with [facility]. Also recommend patient follows up with contract law specialist concerning his chronic left shoulder pain. Strict return precautions were discussed in great detail with patient who states understanding. Critical care attestation.: If time is entered above; I have spent that time in minutes in the direct care of this critically ill patient, excluding procedure time. ED Disposition Clinical Impression: Hypertension, essential Left shoulder pain Qualifiers: Chronicity: chronic Qualified Code(s): M25.512 - Pain in left shoulder Disposition: TO HOME OR SELFCARE Is pt being admited?: No Condition: Stable Instructions: Hypertension (ED), Arthralgia (ED) Prescriptions: amLODIPine [Norvasc] 5 mg PO DAILY #14 tab Meloxicam [Mobic] 15 mg PO QDAY PRN #14 tablet PRN Reason: Pain , Severe (7-10) Referrals: PRIMARY CARE, [Primary Care Provider] - 3-5 Days
[2019-04-26 12:49] LABS: Basophils % (Auto) 0.4 % (0.0-1.8); Eosinophils % (Auto) 0.8 % (0.0-4.3); Hematocrit 43.8 % (35.5-45.6); Hemoglobin 14.4 gm/dl (11.8-15.2); Lymphocytes # (Auto) 1.5 K/mm3 (1.2-5.4); Lymphocytes % (Auto) 25.8 % (13.4-35.0); Mean Corpuscular HGB Conc 33 % (32-34); Mean Corpuscular Volume 89 fl (84-94); Monocytes # (Auto) 0.4 K/mm3 (0.0-0.8); Monocytes % (Auto) 6.7 % (0.0-7.3); Platelet Count 292 K/mm3 (140-440); Red Blood Count 4.94 M/mm3 (3.65-5.03); Red Cell Distribution Width 13.7 % (13.2-15.2)
[2019-04-26 13:15] LABS: Alanine Aminotransferase 45 units/L (7-56); Albumin 4.7 g/dL (3.9-5); BUN/Creatinine Ratio 13; Blood Urea Nitrogen 12 mg/dL (9-20); Calcium 9.6 mg/dL (8.4-10.2); Hemolysis Index 3
[2019-04-26 13:43] VITALS: BP 147/95
== END 2019-04-26 13:43 | disposition home or self-care (01) ==
LOC: ED 09:21
DX: I10 Essential (primary) hypertension (principal); M25.512 Pain in left shoulder; F41.9 Anxiety disorder, unspecified; E03.9 Hypothyroidism, unspecified; Z79.1 Long term (current) use of non-steroidal anti-inflammatories (NSAID); Z79.2 Long term (current) use of antibiotics; Z79.899 Other long term (current) drug therapy
CPT/HCPCS: 36415; 80053; 85025

== ENCOUNTER 2020-08-02 19:23 | Emergency (ER) | payer SELFPAY ==
[2020-08-02] MEDS ORDERED: KETOROLAC 60 MG/2 ML INJ IM ONE (20:42)
[2020-08-02] MEDS ORDERED: predniSONE 20 MG TAB PO ONE (20:42)
[2020-08-02] MEDS ORDERED: CYCLOBENZAPRINE 10 MG TAB PO ONE (20:42)
--- NOTE | 2020-08-02 21:09 | Emergency Department Report ---
ED Back Pain/Injury HPI - General Chief Complaint: Back Pain/Injury Stated Complaint: BACK PAIN Time Seen by Provider: 08/02/20 20:42 Source: patient Limitations: No Limitations - History of Present Illness Initial Comments: This is a 35-year-old male nontoxic, well nourished in appearance, no acute signs of distress presents to the ED with c/o of acute on chronic lower back pa in. Patient stated that the past 3 days he was heavy lifting and developed this pain. Patient denies any radiation of pain. Patient stated pain is improved with rest and worsened with movement and palpation. Patient denies any injuries or trauma. Denies any bladder or bowel instability. Patient denies any urinary symptoms. Denies any fever, chills, nausea, vomiting, headache, stiff neck, ch est pain or shortness of breath. Patient denies any numbness or tingling. Denies any allergies. Past medical history includes anxiety and hypertension. MD Complaint: back pain -: days(s) Similar Symptoms Previously: Yes Radiation: none Severity: mild Severity scale (0 -10): 8 Quality: aching Consistency: intermittent Improves With: immobilization, sitting upright Worsens With: movement, walking Context: while lifting, turning/twisting Associated Symptoms: denies other symptoms. denies: confusion, weakness, chest pain, numbness, difficulty walking, cough, difficulty urinating, diaphoresis, incontinence, fever/chills, constipation, headaches, abdominal pain, loss of appetite, malaise, nausea/vomiting, rash, seizure, shortness of breath, syncope - Related Data Previous Rx's Medication Instructions Recorded Last Taken Type Naproxen [Naprosyn TAB] 500 mg PO BID PRN #20 tablet 03/19/16 Unknown Rx traMADoL [Ultram 50 MG tab] 50 mg PO Q6HR PRN #20 tablet 03/19/16 Unknown Rx Acetaminophen/Codeine [Tylenol 1 tab PO Q6H PRN #12 tab 10/24/18 Unknown Rx /Codeine # 3 tab] Ibuprofen [Motrin] 800 mg PO Q8HR PRN #20 tablet 10/24/18 Unknown Rx Sulfamethoxazole/Trimethoprim 1 each PO Q12H #20 tablet 10/24/18 Unknown Rx [Bactrim DS TAB] Ketorolac [Toradol] 10 mg PO Q6H PRN #14 tablet 01/22/19 Unknown Rx Amoxicillin/Potassium Clav 1 each PO BID 10 Days #20 tablet 04/15/19 Unknown Rx [Augmentin 875-125 Tablet] Benzonatate [Tessalon Perles] 100 mg PO Q8HR PRN #30 capsule 04/15/19 Unknown Rx Fluticasone [Flonase] 1 spray NS QDAY #1 bottle 04/15/19 Unknown Rx Ibuprofen [Motrin 800 MG tab] 800 mg PO Q8HR PRN #30 tablet 04/15/19 Unknown Rx Loratadine 10 mg PO DAILY #30 tablet 04/15/19 Unknown Rx Meloxicam [Mobic] 15 mg PO QDAY PRN #14 tablet 04/26/19 Unknown Rx amLODIPine [Norvasc] 5 mg PO DAILY #14 tab 04/26/19 Unknown Rx Cyclobenzaprine [Flexeril] 10 mg PO QHS PRN #10 tablet 08/02/20 Unknown Rx Allergies Allergy/AdvReac Type Severity Reaction Status Date / Time No Known Allergies Allergy Verified 04/26/19 09:22 ED Review of Systems ROS: Stated complaint: BACK PAIN Other details as noted in HPI Comment: All other systems reviewed and negative Constitutional: denies: chills, fever Eyes: denies: eye pain, eye discharge, vision change ENT: denies: ear pain, throat pain Respiratory: denies: cough, shortness of breath, wheezing Cardiovascular: denies: chest pain, palpitations Endocrine: no symptoms reported Gastrointestinal: denies: abdominal pain, nausea, diarrhea Genitourinary: denies: urgency, dysuria Musculoskeletal: back pain. denies: joint swelling, arthralgia Skin: denies: rash, lesions Neurological: denies: headache, weakness, paresthesias Psychiatric: denies: anxiety, depression Hematological/Lymphatic: denies: easy bleeding, easy bruising ED Past Medical Hx - Past Medical History Previous Medical History?: Yes Hx Hypertension: Yes (untreated) Hx Psychiatric Treatment: Yes (anxiety) Additional medical history: hyperthyroidism, heart murmur - Surgical History Past Surgical History?: No - Social History Smoking Status: Never Smoker Substance Use Type: None - Medications Home Medications: Home Medications Medication Instructions Recorded Confirmed Last Taken Type Naproxen [Naprosyn TAB] 500 mg PO BID PRN #20 tablet 03/19/16 Unknown Rx traMADoL [Ultram 50 MG tab] 50 mg PO Q6HR PRN #20 tablet 03/19/16 Unknown Rx Acetaminophen/Codeine [Tylenol 1 tab PO Q6H PRN #12 tab 10/24/18 Unknown Rx /Codeine # 3 tab] Ibuprofen [Motrin] 800 mg PO Q8HR PRN #20 tablet 10/24/18 Unknown Rx Sulfamethoxazole/Trimethoprim 1 each PO Q12H #20 tablet 10/24/18 Unknown Rx [Bactrim DS TAB] Ketorolac [Toradol] 10 mg PO Q6H PRN #14 tablet 01/22/19 Unknown Rx Amoxicillin/Potassium Clav 1 each PO BID 10 Days #20 tablet 04/15/19 Unknown Rx [Augmentin 875-125 Tablet] Benzonatate [Tessalon Perles] 100 mg PO Q8HR PRN #30 capsule 04/15/19 Unknown Rx Fluticasone [Flonase] 1 spray NS QDAY #1 bottle 04/15/19 Unknown Rx Ibuprofen [Motrin 800 MG tab] 800 mg PO Q8HR PRN #30 tablet 04/15/19 Unknown Rx Loratadine 10 mg PO DAILY #30 tablet 04/15/19 Unknown Rx Meloxicam [Mobic] 15 mg PO QDAY PRN #14 tablet 04/26/19 Unknown Rx amLODIPine [Norvasc] 5 mg PO DAILY #14 tab 04/26/19 Unknown Rx Cyclobenzaprine [Flexeril] 10 mg PO QHS PRN #10 tablet 08/02/20 Unknown Rx ED Physical Exam - General Limitations: No Limitations General appearance: alert, in no apparent distress - Head Head exam: Present: atraumatic, normocephalic - Eye Eye exam: Present: normal appearance - Neck Neck exam: Present: normal inspection, full ROM. Absent: tenderness, meningismus, lymphadenopathy - Respiratory Respiratory exam: Present: normal lung sounds bilaterally. Absent: respiratory distress, wheezes, rales, rhonchi, stridor, chest wall tenderness, accessory muscle use, decreased breath sounds, prolonged expiratory - Cardiovascular Cardiovascular Exam: Present: regular rate, normal rhythm, normal heart sounds. Absent: bradycardia, tachycardia, irregular rhythm, systolic murmur, diastolic murmur, rubs, gallop - GI/Abdominal GI/Abdominal exam: Present: soft. Absent: distended, tenderness - Extremities Exam Extremities exam: Present: normal inspection, full ROM, normal capillary refill. Absent: tenderness - Back Exam Back exam: Present: normal inspection, full ROM, paraspinal tenderness (Lumbar paraspinal). Absent: tenderness, CVA tenderness (R), CVA tenderness (L), muscle spasm, vertebral tenderness, rash noted - Expanded Back Exam Expanded Back exam: Absent: saddle anesthesia Back exam: Negative Straight Leg Raising: Left, Right - Neurological Exam Neurological exam: Present: alert, oriented X3, normal gait - Psychiatric Psychiatric exam: Present: normal affect, normal mood - Skin Skin exam: Present: warm, dry, intact, normal color. Absent: rash ED Course Vital Signs 08/02/20 08/02/20 20:42 20:49 Temperature 98.4 F Pulse Rate 83 Respiratory 16 Rate Blood Pressure 162/92 O2 Sat by Pulse 100 Oximetry - Reevaluation(s) Reevaluation #1: 08/02/20 21:07 Patient is speaking in full sentences with no signs of distress noted. ED Medical Decision Making - Medical Decision Making This is a 35-year-old male that presents with low back strain. Patient is stable was examined by me. There is no spinal tenderness. There is no cauda equina syndrome during examination. No bladder or bowel instability. Patient received Toradol 60 mg IM, prednisone, and Flexeril in the ED which stated that his symptoms has resolved and subsided. Patient stated family member will drive patient home after discharge due to possible drowsiness of Flexeril. Patient is discharged with muscle relaxant and naproxen. Patient was instructed not to operate any machinery while taking muscle relaxant as they cause her drowsiness. Patient was referred to Follow-up with a primary care doctor in 3-5 days or if symptoms worsen and continue return to emergency room as soon as possible. At time of discharge, the patient does not seem toxic or ill in appearance. No acute signs of distress noted. Patient agrees to discharge treatment plan of care. No further questions noted by the patient. This chart is dictated with using [employer] Dictation Program Critical care attestation.: If time is entered above; I have spent that time in minutes in the direct care of this critically ill patient, excluding procedure time. ED Disposition Clinical Impression: Low back strain Qualifiers: Encounter type: initial encounter Qualified Code(s): S39.012A - Strain of muscle, fascia and tendon of lower back, initial encounter Disposition: - TO HOME OR SELFCARE Is pt being admited?: No Does the pt Need Aspirin: No Condition: Stable Instructions: Lumbosacral Strain, Cyclobenzaprine tablets Additional Instructions: Follow-up with your primary care doctor in 3-5 days or if symptoms worsen such as bladder or bowel stability, chest pain, short of breath, numbness or tingling sensation in extremities, headache, dizziness, visual changes, nausea vomiting, or abdominal pain, return back to emergency room as was possible. Take Naproxen and Flexeril as prescribed. Do not operate heavy machinery while taking Flexeril due to sedation Prescriptions: Cyclobenzaprine [Flexeril] 10 mg PO QHS PRN #10 tablet PRN Reason: Muscle Spasm Referrals: PRIMARY CAREMD [Primary Care Provider] - 3-5 Days JAMAR BARNES MD [Staff Physician] - 3-5 Days Forms: Work/School Release Form(ED) Time of Disposition: 21:25
[2020-08-02 22:42] VITALS: BP 138/76
== END 2020-08-02 22:42 | disposition home or self-care (01) ==
LOC: ED 19:23
DX: S39.012A Strain of muscle, fascia and tendon of lower back, initial encounter (principal); I10 Essential (primary) hypertension; F41.9 Anxiety disorder, unspecified; E03.9 Hypothyroidism, unspecified; Z79.899 Other long term (current) drug therapy; X50.0XXA Overexertion from strenuous movement or load, initial encounter; Y93.89 Activity, other specified; Y92.89 Other specified places as the place of occurrence of the external cause; Y99.8 Other external cause status
CPT/HCPCS: 96372; 99282; J1885; J7512

== ENCOUNTER 2020-08-04 03:04 | Emergency (ER) | payer SELFPAY ==
[2020-08-04 03:40] VITALS: BP 145/100
[2020-08-04] MEDS ORDERED: oxyCODONE /ACETAMINOPHEN 5-325MG TAB PO ONE (04:02)
[2020-08-04] MEDS ORDERED: predniSONE 20 MG TAB PO ONE (04:02)
[2020-08-04] MEDS ORDERED: IBUPROFEN 600 MG TAB PO ONE (04:02)
[2020-08-04] MEDS ORDERED: ONDANSETRON 4 MG ODT TAB PO ONE (04:02)
--- NOTE | 2020-08-04 04:24 | XRay Report ---
XR spine thoracolumbar 2V HISTORY: PAIN COMPARISON: None. TECHNIQUE: 2 view(s) of the thoracic spine obtained. FINDINGS: Vertebrae: Normal alignment. Vertebral body heights are preserved. Spondylosis:Disc space heights are preserved. IMPRESSION: 1. No acute abnormality of the thoracic spine. Signer Name: Kris Garcia MD Signed: 08/04/2020 4:19 AM Workstation Name: [id number]
--- NOTE | 2020-08-04 04:40 | Emergency Department Report ---
ED Back Pain/Injury HPI - General Chief Complaint: Back Pain/Injury Stated Complaint: SEVERE BACK PAIN Source: patient Limitations: No Limitations - History of Present Illness Initial Comments: Patient is a 35-year-old -[place] male with a history of hypertension and anxiety who presents to the ED with acute onset persistent nontraumatic mid posterior thoracic and low back pain for the last 1 week, worse in the last 2 days. Patient was initially evaluated in this ED about 24 hours ago, was treated in the ED with Toradol and discharged home on cyclobenzaprine. Patient states that he has not been able to sleep in the last 8 hours because of worsening pain. Patient denies dizziness, traumatic injury, fall, nausea, vomiting, testicular pain, hematuria, dysuria, urinary frequency and urgency, abdominal pain, chest pain or shortness of breath, neck pain, headache or numbness and tingling or weakness of upper and lower extremities bilaterally. MD Complaint: back pain (Mid-posterior thoracic and lower back pain) -: Sudden, week(s) (1) Similar Symptoms Previously: No Place: home Radiation: none Severity: severe Severity scale (0 -10): 8 Quality: sharp, aching Consistency: constant Improves With: none Worsens With: movement, deep breaths/cough Context: while lifting, turning/twisting Associated Symptoms: denies other symptoms. denies: confusion, weakness, chest pain, numbness, difficulty walking, cough, difficulty urinating, diaphoresis, incontinence, fever/chills, constipation, headaches, abdominal pain, loss of appetite, malaise, nausea/vomiting, rash, seizure, shortness of breath, syncope - Related Data Previous Rx's Medication Instructions Recorded Last Taken Type Naproxen [Naprosyn TAB] 500 mg PO BID PRN #20 tablet 03/19/16 Unknown Rx traMADoL [Ultram 50 MG tab] 50 mg PO Q6HR PRN #20 tablet 03/19/16 Unknown Rx Sulfamethoxazole/Trimethoprim 1 each PO Q12H #20 tablet 10/24/18 Unknown Rx [Bactrim DS TAB] Ketorolac [Toradol] 10 mg PO Q6H PRN #14 tablet 01/22/19 Unknown Rx Amoxicillin/Potassium Clav 1 each PO BID 10 Days #20 tablet 04/15/19 Unknown Rx [Augmentin 875-125 Tablet] Benzonatate [Tessalon Perles] 100 mg PO Q8HR PRN #30 capsule 04/15/19 Unknown Rx Fluticasone [Flonase] 1 spray NS QDAY #1 bottle 04/15/19 Unknown Rx Ibuprofen [Motrin 800 MG tab] 800 mg PO Q8HR PRN #30 tablet 04/15/19 Unknown Rx Loratadine 10 mg PO DAILY #30 tablet 04/15/19 Unknown Rx Meloxicam [Mobic] 15 mg PO QDAY PRN #14 tablet 04/26/19 Unknown Rx amLODIPine [Norvasc] 5 mg PO DAILY #14 tab 04/26/19 Unknown Rx Cyclobenzaprine [Flexeril] 10 mg PO QHS PRN #10 tablet 08/02/20 Unknown Rx Acetaminophen/Codeine [Tylenol 1 tab PO Q6H PRN #10 tab 08/04/20 Unknown Rx /Codeine # 3 tab] Ibuprofen [Motrin 800 MG tab] 800 mg PO Q8HR PRN #30 tablet 08/04/20 Unknown Rx predniSONE [Deltasone] 40 mg PO QDAY #10 tab 08/04/20 Unknown Rx Allergies Allergy/AdvReac Type Severity Reaction Status Date / Time No Known Allergies Allergy Verified 04/26/19 09:22 ED Review of Systems ROS: Stated complaint: SEVERE BACK PAIN Other details as noted in HPI Constitutional: denies: chills, fever Eyes: denies: eye pain, eye discharge, vision change ENT: denies: ear pain, throat pain Respiratory: denies: cough, shortness of breath, wheezing Cardiovascular: denies: chest pain, palpitations Endocrine: no symptoms reported Gastrointestinal: denies: abdominal pain, nausea, diarrhea Genitourinary: denies: urgency, dysuria Musculoskeletal: back pain (lower back pain), arthralgia (MID-BACK PAIN). denies: joint swelling Skin: denies: rash, lesions Neurological: denies: headache, weakness, paresthesias Psychiatric: denies: anxiety, depression Hematological/Lymphatic: denies: easy bleeding, easy bruising ED Past Medical Hx - Past Medical History Previous Medical History?: Yes Hx Hypertension: Yes (untreated) Hx Psychiatric Treatment: Yes (anxiety) Additional medical history: hyperthyroidism, heart murmur - Surgical History Past Surgical History?: No - Social History Smoking Status: Never Smoker Substance Use Type: Alcohol - Medications Home Medications: Home Medications Medication Instructions Recorded Confirmed Last Taken Type Naproxen [Naprosyn TAB] 500 mg PO BID PRN #20 tablet 03/19/16 Unknown Rx traMADoL [Ultram 50 MG tab] 50 mg PO Q6HR PRN #20 tablet 03/19/16 Unknown Rx Sulfamethoxazole/Trimethoprim 1 each PO Q12H #20 tablet 10/24/18 Unknown Rx [Bactrim DS TAB] Ketorolac [Toradol] 10 mg PO Q6H PRN #14 tablet 01/22/19 Unknown Rx Amoxicillin/Potassium Clav 1 each PO BID 10 Days #20 tablet 04/15/19 Unknown Rx [Augmentin 875-125 Tablet] Benzonatate [Tessalon Perles] 100 mg PO Q8HR PRN #30 capsule 04/15/19 Unknown Rx Fluticasone [Flonase] 1 spray NS QDAY #1 bottle 04/15/19 Unknown Rx Ibuprofen [Motrin 800 MG tab] 800 mg PO Q8HR PRN #30 tablet 04/15/19 Unknown Rx Loratadine 10 mg PO DAILY #30 tablet 04/15/19 Unknown Rx Meloxicam [Mobic] 15 mg PO QDAY PRN #14 tablet 04/26/19 Unknown Rx amLODIPine [Norvasc] 5 mg PO DAILY #14 tab 04/26/19 Unknown Rx Cyclobenzaprine [Flexeril] 10 mg PO QHS PRN #10 tablet 08/02/20 Unknown Rx Acetaminophen/Codeine [Tylenol 1 tab PO Q6H PRN #10 tab 08/04/20 Unknown Rx /Codeine # 3 tab] Ibuprofen [Motrin 800 MG tab] 800 mg PO Q8HR PRN #30 tablet 08/04/20 Unknown Rx predniSONE [Deltasone] 40 mg PO QDAY #10 tab 08/04/20 Unknown Rx ED Physical Exam - General Limitations: No Limitations General appearance: alert, in no apparent distress - Head Head exam: Present: atraumatic, normocephalic, normal inspection - Eye Eye exam: Present: normal appearance, PERRL, EOMI Pupils: Present: normal accommodation - ENT ENT exam: Present: normal exam, normal orophraynx, mucous membranes moist, TM's normal bilaterally, normal external ear exam - Neck Neck exam: Present: normal inspection, full ROM - Respiratory Respiratory exam: Present: normal lung sounds bilaterally. Absent: respiratory distress, wheezes, rales, rhonchi, chest wall tenderness, accessory muscle use, decreased breath sounds, prolonged expiratory - Cardiovascular Cardiovascular Exam: Present: regular rate, normal rhythm, normal heart sounds. Absent: systolic murmur, diastolic murmur, rubs, gallop - GI/Abdominal GI/Abdominal exam: Present: soft, normal bowel sounds. Absent: tenderness, guarding, rebound, hyperactive bowel sounds, hypoactive bowel sounds, organomegaly - Extremities Exam Extremities exam: Present: normal inspection, full ROM - Back Exam Back exam: Present: normal inspection, full ROM, tenderness, muscle spasm, paraspinal tenderness (Palpable mid posterior thoracic and lumbosacral paraspinal musculoskeletal tenderness). Absent: CVA tenderness (R), CVA tenderness (L), vertebral tenderness - Neurological Exam Neurological exam: Present: alert, oriented X3, CN II-XII intact, normal gait, reflexes normal - Psychiatric Psychiatric exam: Present: normal affect, normal mood - Skin Skin exam: Present: warm, dry, intact, normal color. Absent: rash ED Course Vital Signs 08/04/20 03:38 Temperature 98.4 F Pulse Rate 79 Respiratory 18 Rate Blood Pressure 145/100 O2 Sat by Pulse 97 Oximetry ED Medical Decision Making - Medical Decision Making This is a 35-year-old -[place] male with a history of hypertension and anxiety who presents to the ED with acute onset persistent nontraumatic mid posterior thoracic and low back pain for the last 1 week, worse in the last 2 days. Patient was initially evaluated in this ED about 24 hours ago, was treated in the ED with Toradol and discharged home on cyclobenzaprine. Patient states that he has not been able to sleep in the last 8 hours because of worsening pain. In the ED, patient is alert and oriented x3 and is not in distress. Patient was treated for pain in the ED and thoracolumbar spine x-ray showed no acute fractures or subluxations. Patient symptoms are likely due to muscle strain and muscle spasm of the mid posterior thoracic and lumbosacral area. On reevaluation, patient's pain is well controlled with medications. Patient was discharged home and advised to follow-up with his primary care physician in 5 to 7 days for reevaluation or return to the ED immediately if symptoms get worse. - Differential Diagnosis Muscle spasm; Muscle strain; lumbar disc disease Critical care attestation.: If time is entered above; I have spent that time in minutes in the direct care of this critically ill patient, excluding procedure time. ED Disposition Clinical Impression: Acute bilateral low back pain without sciatica, Spasm of muscle of lower back, Strain of muscle and tendon of back wall of thorax, initial encounter Disposition: TO HOME OR SELFCARE Is pt being admited?: No Does the pt Need Aspirin: No Condition: Stable Instructions: Muscle Cramps and Spasms, [id number], Muscle Strain, [id number], Acute Back Pain, Adult Additional Instructions: The x-ray of your thoracic and lumbar spine showed no acute fractures or subluxations. Therefore your symptoms are likely due to muscle strain and muscle spasm following heavy lifting. Therefore take medications with food, drink plenty of fluids and follow-up with your primary care physician in 5 to 7 days for reevaluation. Return to the ED immediately if symptoms get worse. Prescriptions: predniSONE [Deltasone] 40 mg PO QDAY #10 tab Ibuprofen [Motrin 800 MG tab] 800 mg PO Q8HR PRN #30 tablet PRN Reason: Pain , Severe (7-10) Acetaminophen/Codeine [Tylenol /Codeine # 3 tab] 1 tab PO Q6H PRN #10 tab PRN Reason: Pain , Severe (7-10) Referrals: [facility] [Provider Group] - 3-5 Days Forms: Work/School Release Form(ED) Time of Disposition: 04:40 Print Language: THAI
== END 2020-08-04 05:33 | disposition home or self-care (01) ==
LOC: ED 03:04
DX: S29.012A Strain of muscle and tendon of back wall of thorax, initial encounter (principal); M62.830 Muscle spasm of back; I10 Essential (primary) hypertension; F41.9 Anxiety disorder, unspecified; E03.9 Hypothyroidism, unspecified; X58.XXXA Exposure to other specified factors, initial encounter; Y93.89 Activity, other specified; Y92.89 Other specified places as the place of occurrence of the external cause; Y99.8 Other external cause status
CPT/HCPCS: 72080; 99283; J7512; Q0162

== ENCOUNTER 2020-09-01 23:26 | Emergency (ER) | payer SELFPAY ==
[2020-09-02] MEDS ORDERED: ONDANSETRON 4 MG/2 ML INJ IV ONE ×2 (01:13→04:00)
[2020-09-02] MEDS ORDERED: KETOROLAC 30 MG/1 ML INJ IV ONE ×2 (01:13→04:00)
[2020-09-02] MEDS ORDERED: diazePAM 10 MG/2 ML SYRINGE IV ONE ×2 (01:14→04:00)
[2020-09-02] MEDS ORDERED: dexAMETHasone 20 MG/5 ML VIAL IV ONE ×2 (01:14→04:00)
--- NOTE | 2020-09-02 01:20 | Emergency Department Report ---
<CAMELIAROBBIELesliTAVO - Last Filed: 09/02/20 07:04> ED Back Pain/Injury HPI - General Stated Complaint: BACK PAIN - History of Present Illness Initial Comments: Patient is a 35-year-old -Iranian male with a history of anxiety and untreated hypertension presents to the ED with complaint of worsening low back pain that radiates to the right side and mid posterior thoracic area and right upper quadrant pain for the last 1 month. Patient states that the pain is intermittent and persistent worse with any movement or palpation, and that it is spasming, sharp and radiates to the right upper quadrant abdominal area. Patient states that he has been taking Tylenol, ibuprofen and cyclobenzaprine for pain with no relief. Patient was treated for the same in this ED about a month ago and states that he also followed up with his primary care physician kris ayoub was advised that the pain is due to muscle spasm, and was also discharged home on muscle relaxants. Patient states that the symptoms have been persistent and that he has not been able to sleep or walk upright because of worsening pain. Patient states that he ran out of ibuprofen about 2 days ago and has been taking extra strength Tylenol with Flexeril with no relief. Patient denies fall, trau matic injury, heavy lifting, chest pain, shortness of breath, hematuria, testicular pain, hematemesis, numbness and tingling or weakness of upper and lower extremities bilaterally, fever, chills, neck pain, headache, syncope, dizziness or diarrhea, nausea and vomiting and dysuria. MD Complaint: back pain, other (RUQ abdominal pain) -: Gradual, month(s) (1) Similar Symptoms Previously: Yes Place: home Radiation: abdomen (RUQ area) Severity: severe Severity scale (0 -10): 9 Quality: sharp, aching Consistency: intermittent Improves With: none Worsens With: none Context: while lifting, turning/twisting Associated Symptoms: denies other symptoms, difficulty walking, abdominal pain (RUQ ). denies: confusion, weakness, chest pain, numbness, cough, difficulty urinating, diaphoresis, incontinence, fever/chills, constipation, headaches, loss of appetite, malaise, nausea/vomiting, rash, seizure, shortness of breath, syncope, other Treatments Prior to Arrival: acetaminophen (500 MG 8 HOURS AGO), other medications (Muscle relaxant, Flexeril 10 mg 8 hours ago) - Related Data Previous Rx's Medication Instructions Recorded Last Taken Type Naproxen [Naprosyn TAB] 500 mg PO BID PRN #20 tablet 03/19/16 Unknown Rx traMADoL [Ultram 50 MG tab] 50 mg PO Q6HR PRN #20 tablet 03/19/16 Unknown Rx Sulfamethoxazole/Trimethoprim 1 each PO Q12H #20 tablet 10/24/18 Unknown Rx [Bactrim DS TAB] Ketorolac [Toradol] 10 mg PO Q6H PRN #14 tablet 01/22/19 Unknown Rx Amoxicillin/Potassium Clav 1 each PO BID 10 Days #20 tablet 04/15/19 Unknown Rx [Augmentin 875-125 Tablet] Benzonatate [Tessalon Perles] 100 mg PO Q8HR PRN #30 capsule 04/15/19 Unknown Rx Fluticasone [Flonase] 1 spray NS QDAY #1 bottle 04/15/19 Unknown Rx Ibuprofen [Motrin 800 MG tab] 800 mg PO Q8HR PRN #30 tablet 04/15/19 Unknown Rx Loratadine 10 mg PO DAILY #30 tablet 04/15/19 Unknown Rx Meloxicam [Mobic] 15 mg PO QDAY PRN #14 tablet 04/26/19 Unknown Rx amLODIPine [Norvasc] 5 mg PO DAILY #14 tab 04/26/19 Unknown Rx Cyclobenzaprine [Flexeril] 10 mg PO QHS PRN #10 tablet 08/02/20 Unknown Rx Acetaminophen/Codeine [Tylenol 1 tab PO Q6H PRN #10 tab 08/04/20 Unknown Rx /Codeine # 3 tab] Ibuprofen [Motrin 800 MG tab] 800 mg PO Q8HR PRN #30 tablet 08/04/20 Unknown Rx predniSONE [Deltasone] 40 mg PO QDAY #10 tab 08/04/20 Unknown Rx Allergies Allergy/AdvReac Type Severity Reaction Status Date / Time No Known Allergies Allergy Verified 04/26/19 09:22 ED Review of Systems Constitutional: denies: chills, fever Eyes: denies: eye pain, eye discharge, vision change ENT: denies: ear pain, throat pain Respiratory: denies: cough, shortness of breath, wheezing Cardiovascular: denies: chest pain, palpitations Endocrine: no symptoms reported Gastrointestinal: abdominal pain (RUQ abdominal pain). denies: nausea, vomiting, diarrhea, constipation, hematemesis, melena, hematochezia Genitourinary: denies: urgency, dysuria Musculoskeletal: back pain (Lower back pain), arthralgia (Back pain). denies: joint swelling Skin: denies: rash, lesions Neurological: denies: headache, weakness, paresthesias Psychiatric: denies: anxiety, depression Hematological/Lymphatic: denies: easy bleeding, easy bruising ED Past Medical Hx - Past Medical History Hx Hypertension: Yes (untreated) Hx Psychiatric Treatment: Yes (anxiety) Additional medical history: hyperthyroidism, heart murmur - Social History Smoking Status: Never Smoker Substance Use Type: Alcohol - Medications Home Medications: Home Medications Medication Instructions Recorded Confirmed Last Taken Type Naproxen [Naprosyn TAB] 500 mg PO BID PRN #20 tablet 03/19/16 Unknown Rx traMADoL [Ultram 50 MG tab] 50 mg PO Q6HR PRN #20 tablet 03/19/16 Unknown Rx Sulfamethoxazole/Trimethoprim 1 each PO Q12H #20 tablet 10/24/18 Unknown Rx [Bactrim DS TAB] Ketorolac [Toradol] 10 mg PO Q6H PRN #14 tablet 01/22/19 Unknown Rx Amoxicillin/Potassium Clav 1 each PO BID 10 Days #20 tablet 04/15/19 Unknown Rx [Augmentin 875-125 Tablet] Benzonatate [Tessalon Perles] 100 mg PO Q8HR PRN #30 capsule 04/15/19 Unknown Rx Fluticasone [Flonase] 1 spray NS QDAY #1 bottle 04/15/19 Unknown Rx Ibuprofen [Motrin 800 MG tab] 800 mg PO Q8HR PRN #30 tablet 04/15/19 Unknown Rx Loratadine 10 mg PO DAILY #30 tablet 04/15/19 Unknown Rx Meloxicam [Mobic] 15 mg PO QDAY PRN #14 tablet 04/26/19 Unknown Rx amLODIPine [Norvasc] 5 mg PO DAILY #14 tab 04/26/19 Unknown Rx Cyclobenzaprine [Flexeril] 10 mg PO QHS PRN #10 tablet 08/02/20 Unknown Rx Acetaminophen/Codeine [Tylenol 1 tab PO Q6H PRN #10 tab 08/04/20 Unknown Rx /Codeine # 3 tab] Ibuprofen [Motrin 800 MG tab] 800 mg PO Q8HR PRN #30 tablet 08/04/20 Unknown Rx predniSONE [Deltasone] 40 mg PO QDAY #10 tab 08/04/20 Unknown Rx ED Physical Exam - General General appearance: alert, in no apparent distress - Head Head exam: Present: atraumatic, normocephalic, normal inspection - Eye Eye exam: Present: normal appearance, PERRL, EOMI Pupils: Present: normal accommodation - ENT ENT exam: Present: normal exam, normal orophraynx, mucous membranes moist, TM's normal bilaterally, normal external ear exam - Neck Neck exam: Present: normal inspection, full ROM - Respiratory Respiratory exam: Present: normal lung sounds bilaterally. Absent: respiratory distress, wheezes, rales, rhonchi, chest wall tenderness, decreased breath sounds, prolonged expiratory - Cardiovascular Cardiovascular Exam: Present: regular rate, normal rhythm, normal heart sounds. Absent: systolic murmur, diastolic murmur, rubs, gallop - GI/Abdominal GI/Abdominal exam: Present: soft, tenderness (Palpable right upper quadrant tenderness), normal bowel sounds. Absent: guarding, rebound, hyperactive bowel sounds, hypoactive bowel sounds, organomegaly - Extremities Exam Extremities exam: Present: normal inspection, full ROM, normal capillary refill - Back Exam Back exam: Present: normal inspection, full ROM, tenderness (Palpable right- sided reproducible severe mid posterior thoracic and lumbosacral paraspinal musculoskeletal tenderness), muscle spasm, paraspinal tenderness. Absent: CVA tenderness (R), vertebral tenderness - Neurological Exam Neurological exam: Present: alert, oriented X3, CN II-XII intact, reflexes normal, other (Gait not tested due to the patient's pain) - Psychiatric Psychiatric exam: Present: normal affect, normal mood, anxious - Skin Skin exam: Present: warm, dry, intact, normal color. Absent: rash ED Medical Decision Making - Lab Data Result diagrams: 09/02/20 01:23 09/02/20 01:23 - Radiology Data Radiology results: report reviewed, image reviewed [address] [address] Cat Scan Report Signed Patient: FABIEN VERAS JR MR#: [id number] : 1985 Acct:[id number] Age/Sex: 35 / M ADM Date: 09/01/20 Loc: ED Attending Dr: Ordering Physician: HAMMAD GARNICA Date of Service: 09/02/20 Procedure(s): CT abdomen pelvis w con Accession Number(s): [id number] cc: HAMMAD GARNICA CT ABDOMEN AND PELVIS WITH IV CONTRAST INDICATION: RUQ Pain. COMPARISON: None available. TECHNIQUE: All CT scans at this facility use dose modulation, automated exposure control, iterative reconstruction or weight based dosing, when appropriate, to reduce radiation dose to as low as reasonably achievable. FINDINGS: Lung Bases: No significant abnormality. Skeletal System: There is a 4.6 cm lucent lesion in the medial right iliac bone with cortical loss. There is a punctate lucent lesion in the left iliac bone. Expansile lesion is seen in the left mid sacrum measuring 4.4 cm with diffuse cortical destruction. Additional lucent lesions are seen within the spine. There is compression deformity at the T7 vertebral body. This lesion expands posteriorly into the spinal canal and there is significant mass effect on the canal at this level. There is associated soft tissue component seen best on sagittal image 83. Incompletely included on this exam, there is an expansile aggressive lucent lesion in the sternum. There is a expansile lucent lesion in anterior right rib on image 20 of series 2. Subtle lucent lesions are seen in the proximal femurs. ABDOMEN: Liver: No significant abnormality. Gallbladder: No significant abnormality. Bile Ducts: No significant abnormality. Pancreas: No significant abnormality. Spleen: No significant abnormality. Adrenals: No significant abnormality. Right Kidney: Subcentimeter upper pole hypodensity is likely a cyst. No acute finding. Left Kidney: No significant abnormality. Upper GI tract: No significant abnormality. Lymph Nodes: No significant adenopathy. Aorta: No significant abnormality. Additional Findings: No significant abnormality. PELVIS: Colon: No acute abnormality. Urinary Bladder and Distal Ureters: No significant abnormality. Appendix: No significant abnormality. Lymph Nodes: No significant adenopathy. Additional Findings: None. IMPRESSION: 1. No obstruction or acute inflammatory process is seen. 2. As above, there are numerous lytic lesions within the skeletal system. Several of these are expansile with cortical destruction. T7 vertebral body lesion is expansile with significant narrowing of the spinal canal. These are concerning for metastatic disease. Signer Name: Rainer Bravo MD Signed: 09/02/2020 5:52 AM Workstation Name: [id number] Transcribed By: CARYN Dictated By: Rainer Bravo MD Electronically Authenticated By: Rainer Bravo MD Signed Date/Time: 09/02/20551 DD/ 2 TD/TT: - Medical Decision Making This is a 35-year-old -Iranian male with a history of anxiety and untreated hypertension presents to the ED with complaint of worsening low back pain that radiates to the right side and mid posterior thoracic area and right upper quadrant pain for the last 1 month. Patient states that the pain is intermittent and persistent worse with any movement or palpation, and that it is spasming, sharp and radiates to the right upper quadrant abdominal area. Patient states that he has been taking Tylenol, ibuprofen and cyclobenzaprine for pain with no relief. Patient was treated for the same in this ED about a month ago and states that he also followed up with his primary care physician and was advised that the pain is due to muscle spasm, and was also discharged home on muscle relaxants. Patient states that the symptoms have been persistent and that he has not been able to sleep or walk upright because of worsening pain. Patient states that he ran out of ibuprofen about 2 days ago and has been taking extra strength Tylenol with Flexeril with no relief. In the ED, patient is alert and oriented x3 and is not in any distress but appears to be in significant pain with stable vital signs. Patient was treated for pain in the ED and based on the history and physical exam findings, labs were drawn and abdo men pelvis CT scan with contrast showed no obstruction or acute inflammatory process. However there is a 4.6 cm lucent lesion in the medial right iliac bone with cortical loss. There is a punctate lucent lesion in the left iliac bone. Expansile lesion is seen in the left mid sacrum measuring 4.4 cm with diffuse cortical destruction. Additional lucent lesions are seen within the spine. There is compression deformity at the T7 vertebral body. This lesion expands posteriorly into the spinal canal and there is significant mass effect on the canal at this level. There is associated soft tissue component seen best on sagittal image 83. Incompletely included on this exam, there is an expansile aggressive lucent lesion in the sternum. There is a expansile lucent lesion in anterior right rib on image 20 of series 2. Subtle lucent lesions are seen in the proximal femurs. These are concerning for metastatic disease. The soft tissue neck CT scan with contrast, chest CT scan with contrast and head CT scan without contrast is pending. Patient care was transferred to Mr. Ez CAMACHO at shift change at 0700 hours. He shall review all imaging reports and disposition the patient accordingly. - Differential Diagnosis Muscle spasm; muscle strain; kidney stones; gallstones; UTI ED Disposition Clinical Impression: Bony metastasis, Cord compression Disposition: DC/TX-70 ANOTHER TYPE HLTHCARE Is pt being admited?: No Does the pt Need Aspirin: No Condition: Serious Referrals: PRIMARY CARE, [Primary Care Provider] - 3-5 Days <YAMILET VITALE - Last Filed: 09/02/20 08:24> ED Course - Reevaluation(s) Reevaluation #1: The chart of this patient was transferred to the main ED at approximately 8:00 this morning. I was not previously aware of the patient's presentation. I reviewed the chart and realized the patient required immediate attention. On my encounter the patient states he has been having back pain for at least a month. He also has some other painful areas. However his principal painful area is in the mid thoracic region correlating with his CT findings of a destructive lesion at T7 with extension into the canal. He denied any sort of difficulty in ambulating or weakness or numbness in his lower extremities. He was found to be completely neurologically intact on exam. Patient had already been given Decadron, analgesia and diazepam. He stated that these interventions were quite helpful in reducing his pain level. He had an initial blood pressure that was elevated otherwise his vital signs were within normal limits. This will be repeated. Patient had additional CT studies ordered by HAMMAD. These were deemed to be not emergently needed at this time. I spoke to the neurosurgeon Dr. Thompson commercial litigation paralegal for the [place] system. He was very kind to accept the patient for emergency evaluation at the [facility] emergency department. Report was given to their emergency physician. Immediately transfer was requested. Diagnostic impression Metastatic cancer with multiple lytic lesions of bone T7 destructive lesion with canal extension Neurologically intact patient Plan Emergency transport to [facility]. 09/02/20 08:25 ED Medical Decision Making - Lab Data Result diagrams: 09/02/20 01:23 09/02/20 01:23 <MIRIAN HAWLEY - Last Filed: 09/02/20 09:57> ED Review of Systems ROS: Stated complaint: BACK PAIN Other details as noted in HPI ED Course Vital Signs 09/02/20 09/02/20 09/02/20 01:32 06:12 08:12 Temperature 98.6 F Pulse Rate 76 Respiratory 18 18 Rate Blood Pressure 152/105 Blood Pressure [Left] O2 Sat by Pulse 97 96 Oximetry 09/02/20 09/02/20 09/02/20 08:15 08:16 08:19 Temperature Pulse Rate Respiratory 16 16 Rate Blood Pressure 163/96 Blood Pressure [Left] O2 Sat by Pulse 97 Oximetry 09/02/20 09/02/20 08:30 08:38 Temperature 98.1 F 98.1 F Pulse Rate 98 H Respiratory 16 Rate Blood Pressure 163/96 Blood Pressure 163/96 [Left] O2 Sat by Pulse 97 98 Oximetry ED Medical Decision Making - Lab Data Result diagrams: 09/02/20 01:23 09/02/20 01:23 - Medical Decision Making The patient was initially signed out to me at approximately 7 AM this morning pending CT imaging. I was notified that the CT abdomen and pelvis was abnormal with multiple metastatic lesions but did not review the CT imaging myself. The patient was transferred to the main emergency department due to pain and the ER physician reviewed the chart and found that the CT scan was much more abnormal than initially thought that the patient required emergent neurologic evaluation. Discussed with the case with Dr. Vitale and he resumed care of the patient and spoke to neurosurgeon and arrange transport to [place]. Patient has remained neurologically intact. Critical care attestation.: If time is entered above; I have spent that time in minutes in the direct care of this critically ill patient, excluding procedure time. ED Disposition Time of Disposition: 09:57
[2020-09-02 01:40] LABS: Basophils # (Auto) 0.1 K/mm3 (0.0-0.1); Basophils % (Auto) 0.7 % (0.0-1.8); Eosinophils # (Auto) 0.4 K/mm3 (0.0-0.4); Eosinophils % (Auto) 5.4 % (0.0-4.3); Hematocrit 44.3 % (35.5-45.6); Lymphocytes # (Auto) 2.5 K/mm3 (1.2-5.4); Lymphocytes % (Auto) 33.3 % (13.4-35.0); Mean Corpuscular HGB Conc 34 % (32-34); Mean Corpuscular Volume 89 fl (84-94); Monocytes # (Auto) 0.7 K/mm3 (0.0-0.8); Monocytes % (Auto) 9.3 % (0.0-7.3); Platelet Count 286 K/mm3 (140-440); Red Blood Count 4.98 M/mm3 (3.65-5.03); Red Cell Distribution Width 13.8 % (13.2-15.2)
[2020-09-02 02:06] LABS: Alanine Aminotransferase 45 units/L (7-56); Albumin 4.5 g/dL (3.9-5); BUN/Creatinine Ratio 12; Blood Urea Nitrogen 12 mg/dL (9-20); Calcium 9.7 mg/dL (8.4-10.2); Hemolysis Index 11
--- NOTE | 2020-09-02 05:56 | Cat Scan Report ---
CT ABDOMEN AND PELVIS WITH IV CONTRAST INDICATION: RUQ Pain. COMPARISON: None available. TECHNIQUE: All CT scans at this facility use dose modulation, automated exposure control, iterative reconstructi on or weight based dosing, when appropriate, to reduce radiation dose to as low as reasonably achieva ble. FINDINGS: Lung Bases: No significant abnormality. Skeletal System: There is a 4.6 cm lucent lesion in the medial right iliac bone with cortical loss. T here is a punctate lucent lesion in the left iliac bone. Expansile lesion is seen in the left mid sac rum measuring 4.4 cm with diffuse cortical destruction. Additional lucent lesions are seen within the spine. There is compression deformity at the T7 vertebral body. This lesion expands posteriorly into the spinal canal and there is significant mass effect on the canal at this level. There is associate d soft tissue component seen best on sagittal image 83. Incompletely included on this exam, there is an expansile aggressive lucent lesion in the sternum. There is a expansile lucent lesion in anterior right rib on image 20 of series 2. Subtle lucent lesions are seen in the proximal femurs. ABDOMEN: Liver: No significant abnormality. Gallbladder: No significant abnormality. Bile Ducts: No significant abnormality. Pancreas: No significant abnormality. Spleen: No significant abnormality. Adrenals: No significant abnormality. Right Kidney: Subcentimeter upper pole hypodensity is likely a cyst. No acute finding. Left Kidney: No significant abnormality. Upper GI tract: No significant abnormality. Lymph Nodes: No significant adenopathy. Aorta: No significant abnormality. Additional Findings: No significant abnormality. PELVIS: Colon: No acute abnormality. Urinary Bladder and Distal Ureters: No significant abnormality. Appendix: No significant abnormality. Lymph Nodes: No significant adenopathy. Additional Findings: None. IMPRESSION: 1. No obstruction or acute inflammatory process is seen. 2. As above, there are numerous lytic lesions within the skeletal system. Several of these are expan sile with cortical destruction. T7 vertebral body lesion is expansile with significant narrowing of t he spinal canal. These are concerning for metastatic disease. Signer Name: Rainer Bravo MD Signed: 09/02/2020 5:52 AM Workstation Name: [id number]
[2020-09-02] MEDS ORDERED: ONDANSETRON 4 MG ODT TAB PO ONE (06:09)
[2020-09-02] MEDS ORDERED: oxyCODONE /ACETAMINOPHEN 5-325MG TAB PO ONE (06:09)
[2020-09-02] MEDS ORDERED: SODIUM CHLORIDE 0.9% 1000 ML 1,000 ML IV ONE (06:33)
--- NOTE | 2020-09-02 07:19 | Ultrasound Report ---
ULTRASOUND ABDOMEN, LIMITED (RIGHT UPPER QUADRANT) INDICATION: RUQ pain. COMPARISON: None available. FINDINGS: Pancreas: Visualized portion shows no significant abnormality. Liver: Normal. Gallbladder: Normal. Bile ducts: Normal. Common Bile Duct measures 2-3 mm. Free fluid: None. Additional Findings: None. IMPRESSION: 1. No sonographic abnormality of the right upper quadrant. Signer Name: Rainer Bravo MD Signed: 09/02/2020 7:15 AM Workstation Name: [id number]
[2020-09-02 08:20] VITALS: BP 163/96
== END 2020-09-02 10:03 | disposition other institution (70) ==
LOC: ED 23:26
DX: C79.51 Secondary malignant neoplasm of bone (principal); G95.20 Unspecified cord compression; I10 Essential (primary) hypertension; F41.9 Anxiety disorder, unspecified; Z79.899 Other long term (current) drug therapy
CPT/HCPCS: 36415; 74177; 76705; 80053; 83690; 85025; 96361; 96374; 96375; 99285; J1100; J1885; J2405; J3360; J7030; Q9967; Q0162